=== PATIENT | female | born 2005 | race Caucasian/White ===

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

== ENCOUNTER 2023-01-18 21:55 | Emergency (ER) | payer SELFPAY ==
[2023-01-18] MEDS ORDERED: Ondansetron PF 4 MG/2 ML Vial ONE (22:23)
[2023-01-18 22:28] LABS: #Lymphocytes 0.8 thou/uL (1.20-3.40); #Monocytes 0.2 thou/uL (0.11-0.59); #Neutrophils 7.8 thou/uL (1.40-6.50); %Basophils 0.3 % (0.0-1.0); %Eosinophils 0.2 % (0.0-10.0); %Lymphocytes 8.9 % (28.0-48.0); %Monocytes 1.7 % (0.0-4.0); %Neutrophils 88.9 % (31.0-61.0); Hemoglobin 12.7 g/dL (12.0-16.0); Mean Corpuscular HGB CONC 34.4 g/dL (32.0-36.0); Mean Corpuscular Hemoglobin 29.7 pg (25.0-35.0); Mean Corpuscular Volume 86.2 fl (78.0-98.0); Platelet Count 198 10x3/uL (130-400); RBC Distribution Width 10.6 % (11.5-14.5); Red Blood Cell (RBC) Count 4.29 mill/uL (4.00-5.20); White Blood Cell (WBC) Count 8.8 10x3/uL (4.8-10.8)
[2023-01-18 22:31] LABS: Bilirubin Negative (Negative); Blood, Urine Trace (Negative); Clarity Cloudy (Clear); Glucose, Urine (Dipstick) 100 mg/dL (Negative); Ketone, Urine Negative (Negative); Leukocyte Trace (Negative); Nitrite Positive (Negative); Protein, Urine (Dipstick) 100 mg/dL (Neg-Trace); Specific Gravity, Urine 1.015 (1.005-1.030)
[2023-01-18 22:32] LABS: Pregnancy Test - Urine (BHCG) Negative (Negative); Pregu Control Background? CLEAR/WHITE (CLR/WHITE); Pregu Control Bar Appear? YES (CONTROL BAR); Specific Gravity 1.015 (1.002-1.036)
[2023-01-18 22:37] LABS: CAUTI Indications for Culture Fever or rigors; RBC/HPF 0-3 HPF (0-3); Renal Epithelial 0-3 HPF (None Seen); Transitional Epithelial 0-3 HPF (None Seen); WBC/HPF 21-50 HPF (0-3)
[2023-01-18 22:38] LABS: Other Microscopic Description 1+ RENAL TUBULAR CEL
[2023-01-18 22:40] LABS: Urine Culture Reflex Yes Yes
[2023-01-18 22:47] LABS: ALT (SGPT) 21 U/L (8-55); AST (SGOT) 15 U/L (5-30); Albumin 4.5 g/dL (3.5-5.0); Alkaline Phosphatase 45 U/L (40-100); Anion Gap 13 mmol/L (10-20); BUN (Urea Nitrogen) 6 mg/dL (8.4-21.0); Calc. Creatinine Clearance 0 mL/min (70-130); Carbon Dioxide 23 mmol/L (22-29); Chloride 102 mmol/L (98-107); Estimated GFR 106; Globulin 2.7 g/dL (2.4-3.5); Glucose 127 mg/dL (70-105); Magnesium 1.4 mg/dL (1.7-2.2); Potassium 3.4 mmol/L (3.5-5.1); Protein, Total 7.2 g/dL (6.0-8.3); Sodium 135 mmol/L (136-145)
[2023-01-18] MEDS ORDERED: cefTRIAXone (ROCEPHIN) 1 GM VIAL ONE (22:48)
[2023-01-18] MEDS ORDERED: Acetaminophen 500 MG TAB ONE (23:08)
== END 2023-01-19 00:15 | disposition home or self-care (01) ==
LOC: BURERS 21:55
DX: N10 Acute pyelonephritis (principal); N39.0 Urinary tract infection, site not specified
CPT/HCPCS: 80053; 81001; 81025; 83735; 85025; 87077; 87086; 87186; 96374; 96375; J0696; J2405